=== PATIENT | female | born 1955 | race Caucasian/White ===

== ENCOUNTER 2022-12-05 23:42 | Emergency (ER) | payer BC ==
[~2022-12-05] VITALS: Ht 167.6 cm; Wt 83.0 kg
[2022-12-06] MEDS ORDERED: FLEC100T2 PO (00:08)
[2022-12-06] MEDS ORDERED: APIX2.5T PO (00:08)
[2022-12-06] MEDS ORDERED: HYDR-3980 PO (00:28)
[2022-12-06] MEDS ORDERED: SILVER NITRATE APPLICATOR STICK EACH TP ONE (00:50)
[2022-12-06 00:51] VITALS: BP 128/77
--- NOTE | 2022-12-06 00:51 | NUR ---
Patient discharged to home in stable condition. Written and verbal after care instructions given. Patient verbalizes understanding of instructions. Stressed follow up or return to ER for worsening s/s.
== END 2022-12-06 00:52 | disposition home or self-care (01) ==
LOC: ER 23:57
DX: S63.502A Unspecified sprain of left wrist, initial encounter (principal); I48.91 Unspecified atrial fibrillation; Z88.2 Allergy status to sulfonamides; Z88.8 Allergy status to other drugs, medicaments and biological substances; Z79.899 Other long term (current) drug therapy; W18.39XA Other fall on same level, initial encounter; Y93.89 Activity, other specified; Y92.89 Other specified places as the place of occurrence of the external cause; Y99.8 Other external cause status
CPT/HCPCS: 73110; 73130; A4663